=== PATIENT | male | born 1980 | race Caucasian/White ===

== ENCOUNTER 2022-04-24 13:45 | Emergency (ER) | payer SELFPAY ==
[~2022-04-24] VITALS: Ht 162.6 cm; Wt 72.6 kg
[2022-04-24 14:31] LABS: *BILIRUBIN,URIN NEGATIVE (NEGATIVE); *CLARITY,URINE CLEAR (CLEAR); *COLOR,URINE YELLOW (YELLOW); *KETONES,URINE NEGATIVE (NEGATIVE); *UROBILINOGEN,URINE 0.2 E.U./dl (NORMAL); LEUKOCYTE ESTERASE ,URINE NEGATIVE (NEGATIVE); NITRITE, URINE NEGATIVE (NEGATIVE); PH,URINE 5.5 (5.0-8.0); UGLUCOSE NEGATIVE (NEGATIVE)
[2022-04-24 14:32] LABS: *BLOOD, URINE TRACE (NEGATIVE)
[2022-04-24 14:52] LABS: WBC,URINE 0-3 /HPF (0-3)
[2022-04-24 14:53] LABS: BACTERIA,URINE NONE SEEN /HPF (NONE SEEN); SQUAMOUS EPITHELIAL CELL,UR FEW /HPF (NONE SEEN)
[2022-04-24] MEDS ORDERED: TAMS-3 PO (15:33)
[2022-04-24] MEDS ORDERED: IBUP-1955 PO (15:33)
[2022-04-24 15:39] VITALS: BP 140/77
--- NOTE | 2022-04-24 15:39 | NUR ---
Patient discharged to home in stable condition. Written and verbal after care instructions given. Patient verbalizes understanding of instructions. Stressed follow up or return to ER for worsening s/s.
[2022-04-24 15:43] LABS: HEMATOCRIT 43.2 % (36.7-47.1); MEAN CORPUSCULAR VOLUME 85.8 fL (73.0-96.2); PLATELET COUNT (AUTO) 280 K/uL (152-348)
[2022-04-24 16:06] LABS: CREATININE 1.1 mg/dL (0.6-1.3); POTASSIUM 3.9 mmol/L (3.5-5.1)
== END 2022-04-24 15:55 | disposition home or self-care (01) ==
LOC: ER 13:45
DX: N13.2 Hydronephrosis with renal and ureteral calculous obstruction (principal); Z90.49 Acquired absence of other specified parts of digestive tract
CPT/HCPCS: 36415; 76770; 85025; A4663